=== PATIENT | male | born 1965 | race Caucasian/White ===

== ENCOUNTER 2025-06-06 13:47 | Outpatient (CLI) | payer OTHER, SELFPAY ==
--- NOTE | 2025-06-06 14:00 | CRLHL7_ITS ---
For Patients: As a result of the Century Cures Act, medical imaging exams and procedure reports are released immediately into your electronic medical record. You may view this report before your referring provider. If you have questions, please contact your health care provider. Indication: POINT TENDERNESS RIGHT INGUINAL CREASE, NO TENDERNESS, RIGHT SCROTUM, MILD TENDERNESS WITH DEEP PALPATION IN RIGHT LOWER ABDOMEN Technique: CT Abdomen/Pelvis WITHOUT; VALSALVA MANEUVER Please note that all CT scans at this facility use dose modulation, iterative reconstruction, and/or weight-based dosing when appropriate to reduce radiation dose to as low as reasonably achievable. Comparison: 09/20/2016 Findings: Calcified granuloma in the right lung base is unchanged. Calcified subcarinal and right hilar lymph nodes related to chronic atherosclerotic changes. Scarring within the right lower lobe and to a lesser degree within the left lower lobe. No pleural effusion. Noncontrast enhanced liver is unremarkable. Spleen normal. Normal adrenal glands. Kidneys and ureters within normal limits. Normal pancreas. Gallbladder normal. Vascular calcifications. No aneurysm. Bladder normal. Prostate unremarkable. No bowel obstruction or free air. No free fluid. No abscess. Postop changes of bilateral inguinal hernia repair. No evidence of recurrent hernia or fluid collection. Normal appendix. No adenopathy. Degenerative disc disease L5-S1 with vacuum disc phenomenon. Prominent discogenic spurring lower thoracic spine. Degenerative joint disease of both hips. Impression: Postoperative changes of inguinal hernia repair. No evidence of fluid collection or abscess. No recurrent hernia. Please note that all CT scans at this facility use dose modulation, iterative reconstruction, and/or weight-based dosing when appropriate to reduce radiation dose to as low as reasonably achievable. Dictated by John Yañez MD @ 06/07/2025 11:08:59 AM (Electronically Signed)
== END 2025-06-06 13:48 | disposition home or self-care (01) ==
PROVIDERS: PCP Family Medicine; Visit Provider Physician Assistant Surgical
DX: S39.001A Unspecified injury of muscle, fascia and tendon of abdomen, initial encounter (principal); R10.9 Unspecified abdominal pain
CPT/HCPCS: 74176